=== PATIENT | female | born 1980 | race Caucasian/White ===

== ENCOUNTER 2020-04-19 06:21 | Inpatient (IN) | payer OTHER ==
--- NOTE | 2020-04-17 15:31 | PREOPHP ---
Date of Admission: 04/23/2020 History Of Present Illness: Ms. Cuevas is a 39-year-old nCaucasian female, 2, para 1 -0-0-1, now at 39+ weeks gestation, as established by ultrasound. She is admitted for induction of l abor secondary to a 39+ week , advanced maternal age, chronic hypertension. Past Medical History: Please see record. Family History: Please see record. Review of Systems: She reports no recent cough, cold, fever, or chills. No recent nausea or vomiting. No breast knots or lumps. Baby has been active. She has noticed more contractions recently. She denies any urine s ymptoms or bowel issues other than some constipation taking her iron and vitamins. Physical Examination: General: Reveals a pleasant female unfortunately who is morbidly obese. Neck: Supple without adenopathy or thyromegaly. Lungs: Clear. Cardiac: Regular rate and rhythm without murmurs. Breasts: Not examined. Abdomen: Shows 39 cm fundal height. heart tones heard in the lower midline. Pelvic exam: Cervix noted to be 1 cm, 50% effaced, soft, vertex, ballotable, at -2 station. Extremities: No cyanosis, clubbing, but there is 1+ lower extremity edema. Vital Signs: Blood pressure today in the office was 104/67. Impression: A 39+ week , advanced maternal age, chronic hypertension, morbid obesity. Plan: The patient will be admitted for induction of labor indicated by her risk factors. Risks and benefits are discussed and she would like to use IV analgesia for pain relief during her labor. She has signed operative permit. GHADA/[place] Voice ID: [id number]
--- OUTSIDE RECORDS SUMMARY | 2020-04-19 06:40 | XMS REPORT | Continuity of Care Document ---
:1980 Author Organization [facility] t Address [address] [place] [address] Care Team Providers Name Role Phone Lab, Fam Pob I Attending Clinician Unavailable Problems This patient has no known problems. Allergies, Adverse Reactions, Alerts This patient has no known allergies or adverse reactions. Medications This patient has no known medications. Procedures This patient has no known procedures. Encounters Start End Encounter Admission Attending Care Care Encounter Source Date/Time Date/Time Type Type Clinicians Facility Department ID 2020-03-28 2020-03-28 Laboratory Lab, [facility] [id number] 14:20:16 14:40:16 Only Fam Pob I [facility] [id number] [place] [id number] [facility] [phone] [address] Results This patient has no known results.
--- OUTSIDE RECORDS SUMMARY | 2020-04-19 06:40 | XMS REPORT | Summary of Care ---
:1980 Author Organization [facility] Address [address] [place] [id number] Care Team Providers Name Role Phone MD Abdulaziz Primary Care Provider Reason for Visit Reason Comments Exposure Encounter Details Date Type Department Care Team Description 03/28/2020 Laboratory Only [facility] Family Jaye Fair, ANOOP [address] [place] [id number] Suspected Covid-19 [facility], Adc Fam Pob I Virus Infection [address] [place] [address] (Primary D x) [place] [address] Allergies No Known Allergiesdocumented as of this encounter (statuses as of 03/28/2020) Medications Medication Sig Dispensed Refills Start Date End Date Status levocetirizine (XYZAL) Take 5 mg by 0 Active 5 mg tablet mouth every evening. labetalol 200 mg Take 1 tablet by 60 tablet 11 08/23/2019 Active tabletIndications: mouth every 12 Essential hypertension (twelve) hours. lisinopril-hydrochlorot Take 1 tablet by 30 tablet 11 9 Active hiazide 20-12.5 mg per mouth daily. tabletIndications: Essential hypertension benzonatate 200 mg Take 1 capsule 25 capsule 0 08/23/2019 Active capsuleIndications: by mouth 3 Viral upper respiratory (three) times tract infection with daily as needed cough for Cough. documented as of this encounter (statuses as of 03/28/2020) Active Problems Problem Noted Date Essential hypertension 06/09/2015 Congenital hypothyroidism without goiter 06/09/2015 documented as of this encounter (statuses as of 03/28/2020) Social History Tobacco Use Types Packs/Day Years Used Date Former Smoker Cigarettes Smokeless Tobacco: Never Used Alcohol Use Drinks/Week oz/Week Comments No Sex Assigned at Date Recorded Not on file Job Start Date Occupation Industry Not on file Not on file Not on file Travel History Travel Start Travel End No recent travel history available. documented as of this encounter Last Filed Vital Signs Not on filedocumented in this encounter Plan of Treatment Name Type Priority Associated Diagnoses Order S chedule COVID-19 (PCR MOLECULAR LAB Routine Suspected Covid-1 9 Virus Expected: 03/28/2020, TESTING) Infection Expires: 2020 Health Maintenance Due Date Last Done Comments VARICELLA VACCINES (1 of 2 - 1982 2-dose childhood series) DTaP,Tdap,and Td Vaccines (1 1992 - Tdap) Depression Screening 1993 PAP SMEAR 02/20/2020 02/19/2017 (Previously completed) INFLUENZA VACCINE (#1) 2020 PNEUMOCOCCAL 0-64 YEARS Aged Out No longe r eligible based COMBINED SERIES on patient's age to complete this to pic documented as of this encounter Results Not on filedocumented in this encounter Visit Diagnoses Diagnosis Suspected Covid-19 Virus Infection - Reba bell documented in this encounter Additional Health Concerns Infection Onset Date Last Indicated Resolved Time COVID-19 Rule Out 03/28/2020 03/28/2020 documented as of this encounter (Work) [id number] documented as of this encounter
[2020-04-19 07:04] VITALS: BMI 56.5
[2020-04-19] MEDS ORDERED: Ringers Lactate 1,000 ML IV PRN (07:04)
[2020-04-19] MEDS ORDERED: PROMETHAZINE INJ 25 MG/ML AMP IV PRN (07:04)
[2020-04-19] MEDS ORDERED: BUTORPHANOL 1 MG/ML INJ IV PRN (07:04)
[2020-04-19] MEDS ORDERED: OXYTOCIN/LR 20 UNIT/1,000 ML BAG IV ONE (07:12)
[2020-04-19 07:31] LABS: Urine Appearance CLOUDY; Urine Bilirubin NEGATIVE (NEG); Urine Blood NEGATIVE (NEG); Urine Color YELLOW; Urine Glucose NEGATIVE (NEG); Urine Protein NEGATIVE (NEG); Urine Specific Gravity 1.015 (1.005-1.030); Urine Urobilinogen 0.2 mg/dL (0.2-1.0)
[2020-04-19 07:33] LABS: Absolute Lymphocytes (CBC) 1.6 K/uL (0.7-4.9); Basophils % 0.4 % (0-1.3); Hematocrit 36.6 % (36.0-45.0); Lymphocytes % 16.2 % (15.3-44.8); MPV 9.5 fL (7.6-11.3); RBC Red Blood Cell Count 4.43 M/uL (3.86-4.86)
[2020-04-19] MEDS ORDERED: Ringers Lactate 1,000 ML IV SCH (08:00)
[2020-04-19] MEDS ORDERED: OXYTOCIN/LR 20 UNIT/1,000 ML BAG IV SCH ×2 (08:00→22:00)
[2020-04-19 08:03] LABS: Urine Microscopic Reflex ORDER UMIC
[2020-04-19 08:11] LABS: Urine Bacteria 20-50 /HPF (<20); Urine Culture Reflex Order REFLEXED; Urine Mucus 2+ /HPF (NONE SEEN); Urine Urothelial Cells <5 /HPF (NONE SEEN)
[2020-04-19] MEDS ORDERED: ROPIVACAINE HCL 0 ML ONE (20:15)
[2020-04-19] MEDS ORDERED: ROPIVACAINE HCL 100 ML IV ONE (20:15)
[2020-04-19] MEDS ORDERED: CARBOPROST TROME 250 MCG/ML IM ONE (20:23)
[2020-04-19] MEDS ORDERED: LIDOCAINE 1% 20 ML MDV ONE (20:23)
[2020-04-19] MEDS ORDERED: METHYLERGONOVINE 0.2MG/ML AMP IM ONE (20:23)
[2020-04-19] MEDS ORDERED: FENTANYL CITR 100 MCG/2 ML ONE (20:30)
[2020-04-19] MEDS ORDERED: SUCCINYLCHOLINE 20 MG/ML (10 ML) IV ONE (21:10)
[2020-04-19] MEDS ORDERED: propofoL 200 MG/20 ML VIAL IV ONE (21:10)
[2020-04-19] MEDS ORDERED: LIDOCAINE 2% MPF 5 ML VIAL ONE (21:11)
[2020-04-19] MEDS ORDERED: CARBOPROST TROME 250 MCG/ML IM PRN (21:53)
[2020-04-19] MEDS ORDERED: ONDANSETRON 4 MG (ODT) TAB PO PRN (21:53)
--- NOTE | 2020-04-19 21:58 | P.BOP ---
Preoperative diagnosis: 39 wk. , chronic htn, AMA, morbid obesity Postoperative diagnosis: Same, delivery of viable female Primary procedure: SCVD female Secondary procedure: repair second degree perineal laceration Estimated blood loss: 200ml Anesthesia: epidural Complications: Other (mild shoulder dystocia with Sae manuever) Transferred to: Other (272) Condition: Good
[2020-04-20] MEDS: IBUPROFEN 200 MG TAB PO PRN ×2 (04:00→16:46)
[2020-04-20 04:16] LABS: RPR (Rapid Plasma Reagin) NON-REACT (NON-REACT)
[2020-04-20] MEDS ORDERED: Oxycodone HCl/Acetaminophen 1 TAB TAB PO PRN (07:48)
--- NOTE | 2020-04-20 08:17 | P.BOP ---
Preoperative diagnosis: 39 wk. , chronic htn, AMA, morbid obesity Postoperative diagnosis: Same, delivery of viable female Primary procedure: SCVD female Secondary procedure: repair second degree perineal laceration Estimated blood loss: 200ml Complications: Other (mild shoulder dystocia with Sae manuever) Transferred to: Other (272) Condition: Good
--- NOTE | 2020-04-20 08:19 | P.PN ---
Date of Service: 04/20/20 S-Complains of left groin pain, like a muscle pull O-BP minimally up, hct 35 pp A-Satisfactory P-Watch BP, probably home tomorrow.
--- NOTE | 2020-04-20 08:37 | DN ---
Surgeon: Cas Thacker MD Maggie is a 39-year-old female, 2, para 1-0-0-1, at approximately 39+ week s gestation. She is admitted for induction of labor secondary to advanced maternal age, chronic hype rtension. After Pitocin induction of labor and artificial rupture of membrane, she had a first stage of labor of 10 hours and 20 minutes, second stage of labor of 36 minutes. She delivered by spontane ous controlled vaginal delivery a 7 pounds 12-ounce female infant, 8 and 9. The was del ivered vertex OA. The cord around the neck x1 was noted at the time of delivery. Sae maneuver performed for mild shoulder dystocia. Infant was delivered. Cord was clamped, cut, and the infant placed in a warmer. Cord blood was obtained. The placenta was spontaneously expelled and appeared t o be intact. Intrauterine examination revealed no retained placental fragments. She suffered a midl ine small second-degree perineal laceration which was repaired with 3-0 Vicryl suture in the usual fa shion. She received 2 single mg doses of Stadol for analgesia during her labor course and 1 dose of Phenergan 25 mg IV and had an epidural catheter placed at 8 cm cervical dilatation. Estimated total quantitative blood loss was 125 mL. GHADA/LA Voice ID: [id number] Report ID: [id number]
[2020-04-20] MEDS ORDERED: LABETALOL HCL 100 MG TAB PO SCH (09:00)
[2020-04-21] MEDS: IBUPROFEN 200 MG TAB PO PRN (00:26)
[2020-04-21 07:42] VITALS: BP 147/87; TEMP 97.7
--- NOTE | 2020-04-21 09:21 | DS ---
Final Hospital Discharge Diagnoses: 39 week delivered, advanced maternal age, chronic hype rtension, morbid obesity. Complications: None. Procedures: Pitocin induction of labor, artificial rupture of membranes, placement of epidural andrew ter, spontaneous controlled vaginal delivery of viable female , repair of second-degree perinea l laceration. Hospital Course: The patient is a 39-year-old female, 2, para 1-0-0-1, at 39+ weeks gestation, admitted for induction of labor. She delivered a 7 pounds 12-ounce female infan t, 8 and 9 with epidural anesthesia. After induction of labor, lab work included an admission hemoglobin and hematocrit of 12.0 and 36.6, dismissal hematocrit 35.0. She had urine that was reflex ed. RPR nonreactive. Hepatitis B screen pending. COVID-19 PCR test negative. She is O-positive bl ood type. She was dismissed with Tylenol No.3 #10 prescription to continue taking her vitam ins and labetalol 200 mg 1 p.o. b.i.d. To be seen back in my office in 1 week. Vitamins with the us ual post vaginal delivery activity restrictions. GHADA/[place] Voice ID: [id number] Report ID: [id number]
[2020-04-21] MEDS ORDERED: Tdap (Diph,Pertuss(Acell),Tet Vac) 0.5 ML SYR IMVAC ONE (10:05)
[2020-04-24 06:48] LABS: HBsAG Nonreactive (Nonreactive)
== END 2020-04-21 10:45 | disposition home or self-care (01) | DRG 806 ==
LOC: 2ND-WC 06:21
PROVIDERS: ADMIT Specialist; ATTEND Specialist
PROC: 10E0XZZ Delivery of Products of Conception, External Approach (ICD-10-PCS; principal; 2020-04-20)
PROC: 0KQM0ZZ Repair Perineum Muscle, Open Approach (ICD-10-PCS; 2020-04-20)
PROC: 3E033VJ Introduction of Other Hormone into Peripheral Vein, Percutaneous Approach (ICD-10-PCS; 2020-04-20)
PROC: 10907ZC Drainage of Amniotic Fluid, Therapeutic from Products of Conception, Via Natural or Artificial Opening (ICD-10-PCS; 2020-04-20)
PROC: 4A1H7CZ Monitoring of Products of Conception, Cardiac Rate, Via Natural or Artificial Opening (ICD-10-PCS; 2020-04-20)
PROC: 10H073Z Insertion of Monitoring Electrode into Products of Conception, Via Natural or Artificial Opening (ICD-10-PCS; 2020-04-20)
DX: O70.1 Second degree perineal laceration during delivery (principal); Z68.43 Body mass index [BMI] 50.0-59.9, adult; Z37.0 Single live birth; O16.4 Unspecified maternal hypertension, complicating childbirth; O66.0 Obstructed labor due to shoulder dystocia; O99.213 Obesity complicating pregnancy, third trimester; E66.01 Morbid (severe) obesity due to excess calories; Z3A.39 39 weeks gestation of pregnancy; Z23 Encounter for immunization
CPT/HCPCS: 36415; 81003; 81015; 85014; 85025; 86592; 86850; 86900; 86901; 87086; 87088; 87340; 90471; 90715; J0330; J0595; J2210; J2550; J2590; J2704; J2795; J3010; J7120; U0003